=== PATIENT | female | born 1930 | race Caucasian/White ===

== ENCOUNTER 2016-04-06 08:51 | Emergency (ER) | payer MEDICARE ==
[~2016-04-06] VITALS: Ht 149.9 cm; Wt 75.0 kg
[2016-04-06 09:02] VITALS: BP 109/71; PULSE 83; RESP 16; TEMP 99.4; O2SAT 93
[2016-04-06] MEDS ORDERED: ACET-703 PO (09:21)
[2016-04-06] MEDS ORDERED: VITA500T49 PO (09:21)
[2016-04-06] MEDS ORDERED: ASPI1TAB69 PO (09:21)
[2016-04-06] MEDS ORDERED: MOTR200T4 PO (09:21)
[2016-04-06] MEDS ORDERED: LUMI0.01 EACH EYE (09:21)
[2016-04-06] MEDS ORDERED: ICAPCAP PO (09:21)
[2016-04-06] MEDS ORDERED: LUTE1TAB PO (09:22)
[2016-04-06] MEDS ORDERED: GLUC500C5 PO (09:22)
--- NOTE | 2016-04-06 09:36 | PD ---
HPI Chief Complaint: Cold / Flu Symptoms Time Seen by Provider: 09:07 Travel History International Travel<30 days: No Contact w/Intl Traveler<30days: No Traveled to known affect area: No History of Present Illness HPI This 85-year-old female is brought for evaluation of fever and cough. Her on Wednesday. On Wednesday she started to feel a bit sick. She has been having fevers as 89. He was coughing a lot at night. Her daughter has given her Tylenol and Motrin for fever. There is been clear drainage from her nose. She has no history of heart disease, hypertension or lung disease. She does have macular degeneration and osteoporosis. She has never smoked. She has been short of breath at times. PFSH Past Medical History Diminished Hearing: Yes ([place]) Glaucoma: Yes Medical other: Yes (macular degeneration) Influenza Vaccination: Yes ?: Not Menopausal: Yes Past Surgical History Surgical History: No Previous Surgery Social History Alcohol Use: No Tobacco Use: No Substance Use: No Allergies-Medications (Allergen,Severity, Reaction): Coded Allergies: Clindamycin (Verified Allergy, Unknown, Chest Pain, 04/06/16) Penicillin (Verified Allergy, Unknown, Rash, 04/06/16) Prednisone (Verified Allergy, Unknown, 04/06/16) Reported Meds & Prescriptions Reported Meds & Active Scripts Active Reported Glucosamine (Glucosamine Sulfate) 500 Mg Cap 500 Mg PO DAILY Lutein 10 Mg Tab 10 Mg PO DAILY Motrin Ib (Ibuprofen) 200 Mg Tab 600 Mg PO Q6H PRN Tylenol Extra Strength (Acetaminophen) 500 Mg Tab 500 Mg PO Q4-6H PRN Aspirin 81 Mg Tabdr 81 Mg PO DAILY Vitamin B12 (Cyanocobalamin) 500 Mcg Tab 500 Mcg PO DAILY Icaps (Multiple Vitamins W/ Minerals) 1 Cap 1 Cap PO DAILY Lumigan Opth Drops (Bimatoprost) 0.01% Soln 1 Drop EACH EYE HS Review of Systems General / Constitutional: Positive: Fever Eyes: No: Diploplia, Blurred Vision HENT: No: Headaches Cardiovascular: No: Chest Pain or Discomfort, Palpitations Respiratory: Positive: Cough, Shortness of Breath Gastrointestinal: No: Nausea, Vomiting Genitourinary: No: Urgency Skin: No Rash, No Itching Neurologic: Positive: Weakness Psychiatric: No: Disorder of Thought Hematologic/Lymphatic: No: Easy Bruising Physical Exam Narrative GENERAL: Well-developed female SKIN: Warm and dry. HEAD: Atraumatic. Normocephalic. EYES: Pupils equal and round. No scleral icterus. No injection or drainage. ENT: No nasal bleeding or discharge. Mucous membranes pink and moist. NECK: Trachea midline. No JVD. CARDIOVASCULAR: Regular rate and rhythm. No murmur appreciated. RESPIRATORY: No accessory muscle use. There are a few basilar rales. Breath sounds equal bilaterally. GASTROINTESTINAL: Abdomen soft, non-tender, nondistended. Hepatic and splenic margins not palpable. MUSCULOSKELETAL: No obvious deformities. No clubbing. No cyanosis. No edema. NEUROLOGICAL: Awake and alert. No obvious cranial nerve deficits. Motor grossly within normal limits. Normal speech. PSYCHIATRIC: Appropriate mood and affect; insight and judgment normal. Data Data Last Documented VS Vital Signs Date Time Temp Pulse Resp B/P Pulse Ox O2 Delivery O2 Flow Rate FiO2 04/06/16 09:15 18 95 Room Air 04/06/16 09:02 99.4 83 109/71 Orders Complete Blood Count With Diff (04/06/16 09:25) Basic Metabolic Panel (Bmp) (04/06/16 09:25) Blood Culture (04/06/16 09:25) Urinalysis - C+S If Indicated (04/06/16 09:25) Influenzae A/B Antigen (04/06/16 09:25) Chest, Pa & Lat (04/06/16 09:25) Labs Laboratory Tests Test 04/06/16 04/06/16 09:38 10:20 White Blood Count 4.9 TH/MM3 Red Blood Count 4.46 MIL/MM3 Hemoglobin 13.4 GM/DL Hematocrit 40.3 % Mean Corpuscular Volume 90.2 FL Mean Corpuscular Hemoglobin 30.0 PG Mean Corpuscular Hemoglobin 33.3 % Concent Red Cell Distribution Width 14.4 % Platelet Count 129 TH/MM3 Mean Platelet Volume 7.9 FL Neutrophils (%) (Auto) 73.9 % Lymphocytes (%) (Auto) 11.5 % Monocytes (%) (Auto) 13.9 % Eosinophils (%) (Auto) 0.2 % Basophils (%) (Auto) 0.5 % Neutrophils # (Auto) 3.6 TH/MM3 Lymphocytes # (Auto) 0.6 TH/MM3 Monocytes # (Auto) 0.7 TH/MM3 Eosinophils # (Auto) 0.0 TH/MM3 Basophils # (Auto) 0.0 TH/MM3 CBC Comment DIFF FINAL Differential Comment Sodium Level 135 MEQ/L Potassium Level 3.5 MEQ/L Chloride Level 100 MEQ/L Carbon Dioxide Level 25.9 MEQ/L Anion Gap 9 MEQ/L Blood Urea Nitrogen 10 MG/DL Creatinine 0.65 MG/DL Estimat Glomerular Filtration 87 ML/MIN Rate Random Glucose 107 MG/DL Calcium Level 8.7 MG/DL Urine pH 6.0 Urine Protein 30 mg/dL Urine Glucose (UA) NEG mg/dL Urine Ketones TRACE mg/dL Urine Occult Blood NEG Urine Nitrite NEG Urine Bilirubin NEG Urine Leukocyte Esterase NEG MDM Medical Decision Making Medical Screen Exam Complete: Yes Emergency Medical Condition: Yes Medical Record Reviewed: Yes Differential Diagnosis Differential includes pneumonia, influenza, upper respiratory infection Narrative Course Chest x-ray is read as negative for infiltrate or congestive failure. It is noted that the right clavicle is absent. The patient does recall an injury but does did not have the clavicle removed. Tests for influenza is positive for influenza A. White count is 4.8 Diagnosis Primary Impression: Influenza A Additional Instructions: Tylenol or Motrin for fever Scripts Oseltamivir (Tamiflu)75 Mg Cap75 Mg PO BID 5 Days Ref 0 Prov:Jaylen Alcaraz MD 04/06/16 Disposition: 01 DISCHARGE HOME Condition: Stable Jaylen Alcaraz MD Apr 06, 2016 09:36
[2016-04-06 09:49] LABS: AUTOMATED NEUTROPHIL # 3.6 TH/MM3 (1.8-7.7); BASOPHIL % 0.5 % (0.0-2.0); EOSINOPHIL % 0.2 % (0.0-4.0); HEMATOCRIT 40.3 % (35.0-46.0); HEMO FLAGS DIFF FINAL; LYMPH % 11.5 % (9.0-44.0); LYMPHOCYTE # 0.6 TH/MM3 (1.0-4.8); MEAN CELL VOLUME 90.2 FL (80.0-100.0); MEAN CORPUSCULAR HGB CONC 33.3 % (32.0-36.0); MONO % 13.9 % (0.0-8.0); NEUT % 73.9 % (16.0-70.0); PLATELET COUNT 129 TH/MM3 (150-450); RED BLOOD COUNT 4.46 MIL/MM3 (4.00-5.30); RED CELL DISTRIBUTION WIDTH 14.4 % (11.6-17.2); WHITE BLOOD COUNT 4.9 TH/MM3 (4.0-11.0)
[2016-04-06 10:14] LABS: POTASSIUM 3.5 MEQ/L (3.5-5.1)
[2016-04-06 10:17] LABS: BICARBONATE 25.9 MEQ/L (21.0-32.0)
[2016-04-06 10:24] LABS: BLOOD, URINE NEG (NEG); GLUCOSE,URINE NEG (NEG); KETONE, URINE TRACE mg/dL (NEG); NITRITE,URINE NEG (NEG)
--- NOTE | 2016-04-06 10:31 | RADHPO ---
EXAM DATE/TIME: 04/06/2016 09:41 [facility] COMPARISON: No previous studies available for comparison. INDICATIONS : Cough, fever. MEDICAL HISTORY: None. SURGICAL HISTORY: None. ENCOUNTER: Initial ACUITY: 2 days PAIN SCORE: 0/10 LOCATION: Bilateral chest FINDINGS: Heart is minimally enlarged, pulmonary vascularity is normal. There is deformity of the right chest wall. The distal right clavicle is surgically absent. CONCLUSION: 1. Negative chest for acute disease. 2. I do not see for infiltrate or significant failure. Emmett Nguyễn MD FACR on April 06, 2016 at 10:11 Board Certified Radiologist. This report was verified electronically.
[2016-04-06 10:41] LABS: COMMENT (UR) CULT NOT INDICATED; CULTURE IF INDICATED CULT NOT INDICATED; METHOD OF COLLECTION CLEAN CATCH; SQUAMOUS EPITHELIAL CELL URINE 0-5 /hpf (0-5); URINE COLOR YELLOW (YELLW/STRAW); WBC, URINE 0-2 /hpf (0-5)
[2016-04-06] MEDS ORDERED: OSEL75 PO (10:47)
[2016-04-06 11:06] VITALS: BP 137/78
== END 2016-04-06 11:07 | disposition home or self-care (01) ==
LOC: PHED 08:51
DX: J09.X2 Influenza due to identified novel influenza A virus with other respiratory manifestations (principal); H40.9 Unspecified glaucoma; H91.90 Unspecified hearing loss, unspecified ear
CPT/HCPCS: 71020; 80048; 81001; 85025; 87040; 87804; 99284